=== PATIENT | female | born 1985 | race Two or more races ===

== ENCOUNTER 2019-01-07 20:43 | Emergency (ER) | payer MEDICAID ==
[~2019-01-07] VITALS: Ht 154.9 cm; Wt 136.0 kg
[2019-01-07 23:54] VITALS: BP 114/78
== END 2019-01-07 23:57 | disposition home or self-care (01) ==
LOC: ER 20:43
DX: F34.1 Dysthymic disorder (principal); E11.65 Type 2 diabetes mellitus with hyperglycemia; F17.200 Nicotine dependence, unspecified, uncomplicated; J45.909 Unspecified asthma, uncomplicated
CPT/HCPCS: 82962; 99283

== ENCOUNTER 2019-08-21 10:46 | Emergency (ER) | payer MEDICAID ==
[~2019-08-21] VITALS: Ht 154.9 cm; Wt 119.0 kg
[2019-08-21] MEDS ORDERED: ONDANSETRON 4MG ODT PO STA (11:40)
[2019-08-21] MEDS ORDERED: IBUPROFEN 600MG TABLET PO STA (11:40)
[2019-08-21 12:10] LABS: CLARITY URINE CLEAR (CLEAR); COLOR URINE YELLOW (YELLOW); KETONES URINE 4+ (NEGATIVE); LEUKOCYTE ESTERASE URINE NEGATIVE (NEGATIVE); NITRITE URINE NEGATIVE (NEGATIVE); OCCULT BLOOD URINE TRACE (NEGATIVE); PROTEIN URINE TRACE (NEGATIVE); SPECIFIC GRAVITY URINE 1.054 (1.005-1.030); UROBILINOGEN URINE 0.2 E.U./dL (0.2-1.0)
[2019-08-21 12:22] LABS: BASOPHILS % 0.3 % (0.0-2.0); EOSINOPHILS % 1.2 % (0.0-5.0); HEMATOCRIT. 41.8 % (36.0-48.0); HEMOGLOBIN. 14.3 g/dL (12.0-16.0); LYMPHOCYTES % 10.1 % (20.0-50.0); MEAN CORPUSCULAR VOLUME 81.8 fL (81.0-99.0); MEAN PLATELET VOLUME 7.4 fl (7.4-10.4); MONOCYTES % 6.9 % (2.0-8.0); NEUTROPHILS % 81.5 % (40.0-76.0); PLATELET 388 x1000/uL (130-400); RED BLOOD CELL COUNT 5.11 mill/uL (4.2-5.4); RED CELL DISTRIBUTION WIDTH 12.9 % (11.6-14.6)
[2019-08-21 12:30] LABS: CHLORIDE 105 mEq/L (98-107)
[2019-08-21 13:54] VITALS: BP 118/74
== END 2019-08-21 13:55 | disposition home or self-care (01) ==
LOC: ER 10:46
DX: J18.9 Pneumonia, unspecified organism (principal); R50.9 Fever, unspecified; J45.909 Unspecified asthma, uncomplicated; E11.9 Type 2 diabetes mellitus without complications; M79.10 Myalgia, unspecified site; R07.89 Other chest pain; R11.2 Nausea with vomiting, unspecified
CPT/HCPCS: 36415; 71045; 80053; 81003; 81025; 82962; 85025; 93005; 99285; Q0162

== ENCOUNTER 2019-08-21 18:25 | Emergency (ER) | payer MEDICAID ==
[~2019-08-21] VITALS: Ht 167.6 cm; Wt 109.0 kg
[2019-08-21 18:34] VITALS: BP 130/79
== END 2019-08-22 00:24 | disposition left against medical advice (07) ==
LOC: ER 18:25
DX: Z53.21 Procedure and treatment not carried out due to patient leaving prior to being seen by health care provider (principal)

== ENCOUNTER 2021-12-05 12:06 | Emergency (ER) | payer MEDICAID ==
[~2021-12-05] VITALS: Ht 154.9 cm; Wt 119.0 kg
[2021-12-05 12:19] VITALS: BP 132/80
[2021-12-05] MEDS ORDERED: AMOX-494 MT (12:51)
[2021-12-05] MEDS ORDERED: T3 PO (12:51)
== END 2021-12-05 13:41 | disposition home or self-care (01) ==
LOC: ER 12:06
DX: K08.89 Other specified disorders of teeth and supporting structures (principal); E11.9 Type 2 diabetes mellitus without complications; Z87.01 Personal history of pneumonia (recurrent)
CPT/HCPCS: 82962; 99283